=== PATIENT | female | born 1965 | race Caucasian/White ===

== ENCOUNTER → 2021-06-06 15:17 | Outpatient (BNVA) | payer SELFPAY | PROVIDERS: Visit Provider Emergency Medicine | DX: M25.541 Pain in joints of right hand (principal); Z82.61 Family history of arthritis; L98.9 Disorder of the skin and subcutaneous tissue, unspecified | CPT/HCPCS: 73120; 85025; 86160; 86162; 86235; 86255; 86376; 86431 ==

== ENCOUNTER → 2021-07-01 11:22 | Outpatient (BNVA) | payer SELFPAY | PROVIDERS: Visit Provider Internal Medicine | DX: R76.8 Other specified abnormal immunological findings in serum (principal); M25.50 Pain in unspecified joint; R53.83 Other fatigue | CPT/HCPCS: 81001; 82306; 82550; 83516; 84443; 86200; 86431; 86704; 86803; 87077; 87086; 87186; 87340 ==